=== PATIENT | male | born 1980 | race Caucasian/White ===

== ENCOUNTER → 2019-12-16 | Outpatient (CLI) | payer OTHER | LOC: M.LAB 08:22 | DX: R00.2 Palpitations (principal); R61 Generalized hyperhidrosis ==

== ENCOUNTER → 2019-12-19 | Outpatient (CLI) | payer OTHER ==
--- NOTE | 2019-12-19 13:16 | 2DMMODE ---
[place] [address] 2 D/M-MODE ECHOCARDIOGRAM Name: JARRET VIERA Room: [facility]#: [id number] Admission: 12/19/19 Attend Phys: Steve Arceo DO Discharge: Date of : 84 Date of Service: 12/19/19 1316 Report #: [id number] THIS REPORT FOR: cc: Steve Arceo Adam J DO Liston, Michael J. MD [facility] ~ APPROVED REPORT Study performed: 12/19/2019 10:14:48 EXAM: Comprehensive 2D, Doppler, and color-flow Echocardiogram Patient Location: Out-Patient BSA: 2.07 HR: 72 bpm BP: 120/70 mmHg Other Information Study Quality: Good Indications Palpitations 2D Dimensions IVSd: 11.57 (7-11mm) LVOT Diam: 20.62 (18-24mm) LVDd: 42.22 mm PWd: 10.02 (7-11mm) Ascending Ao: 28.38 (22-36mm) LVDs: 26.44 (25-40mm) Aortic Root: 28.54 mm Volumes Left Atrial Volume (Systole) LA ESV Index: 12.40 mL/m2 Aortic Valve AoV Peak Emre.: 1.27 m/s AO Peak Gr.: 6.46 mmHg LVOT Max P.47 mmHg AO Mean Gr.: 3.78 mmHg LVOT Mean P.47 mmHg LVOT Max V: 1.17 m/s AO V2 VTI: 26.74 cm LVOT Mean V: 0.71 m/s DEBBY (VTI): 2.57 cm2 LVOT V1 VTI: 20.62 cm Mitral Valve E/A Ratio: 1.35 [place] [address] 2 D/M-MODE ECHOCARDIOGRAM Name: JARRET VIERA Room: [facility]#: [id number] Admission: 12/19/19 Attend Phys: Steve Arceo DO Discharge: Date of : 84 Date of Service: 12/19/19 1316 Report #: [id number] MV Decel. Time: 142.96 ms MV E Max Emre.: 0.91 m/s MV PHT: 41.46 ms MVA (PHT): 5.31 cm2 TDI E/Lateral E': 5.35 E/Medial E': 7.00 Medial E' Emre.: 0.13 m/s Lateral E' Emre.: 0.17 m/s Pulmonary Valve PV Peak Emre.: 1.00 m/s PV Peak Gr.: 4.02 mmHg Tricuspid Valve RAP Estimate: 5.00 mmHg TR Peak Gr.: 27.36 mmHg RVSP: 32.36 mmHg PA Pressure: 32.36 mmHg Left Ventricle The left ventricle is normal size. There is normal LV segmental wall motion. There is normal left ventricular wall thickness. Left ventricular systolic function is normal. LVEF is 60-65%. The left ventricular diastolic function is normal. Right Ventricle The right ventricle is normal size. The right ventricular systolic function is normal. Atria The left atrium size is normal. The right atrium size is normal. Aortic Valve The aortic valve is normal in structure. No aortic regurgitation is present. There is no aortic valvular stenosis. Mitral Valve The mitral valve is normal in structure. There is no mitral valve regurgitation noted. No evidence of mitral valve stenosis. Tricuspid Valve The tricuspid valve is normal in structure. Mild tricuspid regurgitation. No pulmonary hypertension. Pulmonic Valve The pulmonary valve is normal in structure. [place] [address] 2 D/M-MODE ECHOCARDIOGRAM Name: JARRET VIERA Room: [facility]#: [id number] Admission: 12/19/19 Attend Phys: Steve Arceo DO Discharge: Date of : 84 Date of Service: 12/19/19 1316 Report #: [id number] valvular regurgitation. Great Vessels The aortic root is normal in size. IVC is normal in size and collapses >50% with inspiration. Pericardium There is no pericardial effusion. <Conclusion> The left ventricle is normal size. There is normal left ventricular wall thickness. Left ventricular systolic function is normal. LVEF is 60-65%. The left ventricular diastolic function is normal. There is normal LV segmental wall motion. Mild tricuspid regurgitation. No pulmonary hypertension. IVC is normal in size and collapses >50% with inspiration. <ELECTRONICALLY SIGNED> By: Brandon Rowland MD, FACC 12/19/191315 15 15 Brandon Rowland MD, FACC /INF
== END ==
LOC: M.CRD
PROVIDERS: ATTEND Family Medicine
DX: I07.1 Rheumatic tricuspid insufficiency (principal)